=== PATIENT | female | born 1945 | race Caucasian/White ===

== ENCOUNTER → 2021-07-28 | Outpatient (CLI) | payer MEDICARE | LOC: LAB 10:39 | DX: I10 Essential (primary) hypertension (principal); R10.32 Left lower quadrant pain | CPT/HCPCS: 36415; 82565; 84520 ==

== ENCOUNTER → 2021-08-02 | Outpatient (CLI) | payer MEDICARE | LOC: CT 08:00 | DX: R10.32 Left lower quadrant pain (principal) | CPT/HCPCS: Q9967 ==